=== PATIENT | female | born 1945 | race Two or more races ===

== ENCOUNTER 2017-01-03 15:36 | Inpatient (IN) | payer MEDICARE, OTHER, SELFPAY ==
[~2017-01-03] VITALS: Ht 157.5 cm; Wt 70.8 kg
[2017-01-03] MEDS ORDERED: ASPIRIN 81 MG TABLET CHEW PO ONE (16:00)
[2017-01-03] MEDS ORDERED: SODIUM CHLORIDE FLUSH 10ML SYR IVF ONE (16:00)
[2017-01-03] MEDS ORDERED: ROSU20TA PO (16:21)
[2017-01-03] MEDS ORDERED: SITA100T PO (16:21)
[2017-01-03] MEDS ORDERED: HYDR25TA6 PO (16:21)
[2017-01-03] MEDS ORDERED: CANA300T PO (16:21)
[2017-01-03] MEDS ORDERED: OMEP-110 PO (16:21)
[2017-01-03 16:30] LABS: BLOOD UREA NITROGEN 20 mg/dL (7-18)
[2017-01-03] MEDS ORDERED: MECLIZINE CHEWABLE 25 MG TAB PO ONE (16:30)
[2017-01-03 16:35] LABS: IS PT STATUS REG ER OR PRE ER? YES
[2017-01-03] MEDS ORDERED: ASPIRIN 81 MG TABLET CHEW ONE (16:43)
[2017-01-03] MEDS ORDERED: MECLIZINE CHEWABLE 25 MG TAB ONE (16:43)
[2017-01-03] MEDS ORDERED: DOBUTAMINE/D5W PMX 250 ML IV ONE (21:53)
[2017-01-04 01:29] VITALS: BP 126/71
[2017-01-04 03:35] VITALS: BP 121/70
[2017-01-04 07:27] VITALS: BP 136/74
[2017-01-04] MEDS ORDERED: REGADENOSON 0.4 MG/5 ML SYRINGE ONE (08:19)
[2017-01-04 08:55] LABS: IS PT STATUS REG ER OR PRE ER? NO
[2017-01-04] MEDS ORDERED: TEMPLATE NON-FORMULARY MED. (Canagliflozin (Invokana) 300 MG) HOMEMEDPO SCH (09:00)
[2017-01-04] MEDS ORDERED: SODIUM CHLORIDE 0.9% 500 ML IVF SCH (09:00)
[2017-01-04] MEDS ORDERED: OMEPRAZOLE 20 MG CAPSULE.DR PO SCH (09:00)
[2017-01-04] MEDS ORDERED: SITAGLIPTIN 100MG TABLET PO SCH (09:00)
[2017-01-04] MEDS ORDERED: HYDROCHLOROTHIAZIDE 25 MG TABLET PO SCH (09:00)
[2017-01-04 12:25] VITALS: BP 137/79
[2017-01-04 12:26] VITALS: BP 153/68
[2017-01-04 12:27] VITALS: BP 103/61
[2017-01-04] MEDS ORDERED: SODIUM CHLORIDE 0.9% 1,000ML IVBOLUS ONE (13:00)
[2017-01-04 13:19] LABS: BLOOD UREA NITROGEN 20 mg/dL (7-18)
[2017-01-04] MEDS ORDERED: INSULIN ASPART 100 UNITS/ML, PEN SQ-INSULIN SCH (16:00)
[2017-01-04] MEDS ORDERED: ATORVASTATIN 40 MG TABLET PO SCH (21:00)
== END 2017-01-04 17:56 | disposition home or self-care (01) | DRG 312 ==
LOC: ED 19:50 → EDIP 19:55 → 5SO 01-04 01:08
PROVIDERS: ADMIT Internal Medicine; ATTEND Internal Medicine
DX: I95.1 Orthostatic hypotension (principal); N17.9 Acute kidney failure, unspecified; R07.9 Chest pain, unspecified; E11.65 Type 2 diabetes mellitus with hyperglycemia; K21.9 Gastro-esophageal reflux disease without esophagitis; I07.1 Rheumatic tricuspid insufficiency; I11.9 Hypertensive heart disease without heart failure; E86.0 Dehydration; E11.649 Type 2 diabetes mellitus with hypoglycemia without coma; E11.319 Type 2 diabetes mellitus with unspecified diabetic retinopathy without macular edema; Z79.4 Long term (current) use of insulin
CPT/HCPCS: 36415; 70450; 71010; 78452; 80048; 82040; 83036; 83880; 84484; 85025; 93005; 93017; 93306; 99285; J1815; J2785; A9502; C9898; J7030